=== PATIENT | female | born 1955 | race Caucasian/White ===

== ENCOUNTER 2018-01-24 13:09 | Observation (INO) ==
[2018-01-24] MEDS ORDERED: Ipratropium/Albuterol Neb 3 ML IH ONE (13:17)
--- NOTE | 2018-01-24 13:19 | Emergency Department Note ---
Disposition Clinical Impression: Acute exacerbation of chronic obstructive airways disease Disposition: Admitted As Inpatient Condition: Good Time of Disposition: 14:50 (Accepted by Dr Galvez for adsmission) SOB HPI - General Chief Complaint: ED Shortness of Breath/Dyspnea Stated Complaint: shortness of breath Time Seen by Provider: 01/24/18 13:16 Source: EMS Mode of arrival: EMS Limitations: no limitations Nursing Notes Reviewed: Yes Vital Signs Reviewed: Yes - History of Present Illness Patient is a pleasant 62-year-old female with past medical history significant for HTN, myocardial infarction, thyroid dysfunction, chronic tobacco abuse, Dyslipidemia and COPD who is presenting to [facility] Emergency Room with a chief complaint off severe shortness of breath. Patient stated that she cannot breathe. She called paramedics who gave her a breathing treatment. Patient smokes about 8 cigarettes per day and has a known long history of COPD. She uses 2 L of his cannula and also use a BiPAP. She recently noticed after exposure to fumes/smoking made her symptoms worse. She also reports recent cough productive of clear sputum. She denies chest heaviness. Patient denies any fever, chills or night sweats. Pt also denies any eye pain or visual disturbances. There is no sore throat, nasal drainages or facial congestion. There is no chest pain, palpitations or racing heart. There is no abdominal pain, nausea, vomiting or diarrhea. There is no urgency, frequency or dysuria. There is no muskulo-skeletal pain, arthralgia or back pain. Patient also denies any rash, edema or pruritus. There is no neurological manifestations, no headache, no vertigo or weakness. The patient also denies any anxiety, depression, hallucinations and has no homicidal or suicidal ideations. There is no polyuria, polydipsia or recent weight change. There is no easy bruising or bleeding. Review of other systems is otherwise negative except above. Pt Subjective Complaint: shortness of breath, chest pain Onset (ago): hour(s) Context: smoke/fume exposure Severity: severe Consistency/Duration: gradually worsening Improves with: bronchodilators - Related Data Previous Rx's Medication Instructions Recorded RX: Aspirin [Lo-Dose Aspirin EC] 81 mg PO DAILY #30 tablet. 04/12/17 RX: Atorvastatin Calcium [Lipitor] 80 mg PO HS #30 tablet 04/12/17 RX: Benztropine [Cogentin] 1 mg PO BID #60 tablet 04/12/17 RX: BuPROPion XL (24 HR) 150 mg PO QAM #30 tab.er.24h 04/12/17 [Wellbutrin Xl] RX: DULoxetine [Cymbalta] 30 mg PO BID #60 capsule. 04/12/17 RX: Ipratropium/Albuterol Neb 3 ml IH QID PRN #30 inhsol 04/12/17 [Duoneb] RX: Ipratropium/Albuterol Sulfate 1 puff IH QID PRN 30 Days 04/12/17 [Combivent Respimat Inhal [place]] mist.inhal RX: LORazepam [Ativan] 0.5 mg PO BID #60 tablet 04/12/17 RX: Metoprolol XL (24 HR) Succ 25 mg PO DAILY #30 tab.er.24h 04/12/17 [Toprol Xl] RX: Montelukast [Singulair] 10 mg PO DAILY #30 tablet 04/12/17 RX: Nabumetone [Relafen] 500 mg PO BID PRN #20 tablet 04/12/17 RX: OLANZapine [Zyprexa] 20 mg PO HS #30 tablet 04/12/17 RX: Pantoprazole Sodium [Protonix] 40 mg PO DAILY #30 tablet. 04/12/17 RX: Polyethylene Glycol 3350 17 gm PO DAILY PRN #20 powd.pack 04/12/17 [MiraLAX] Allergies Allergy/AdvReac Type Severity Reaction Status Date / Time haloperidol [From Haldol] Allergy Swelling Verified 01/24/18 13:11 of Lip/Tongue/Throat phenylalanine Allergy Swelling Verified 01/24/18 13:11 of Lip/Tongue/Throat prochlorperazine Allergy Swelling Verified 01/24/18 13:11 [From Compazine] of Lip/Tongue/Throat All systems ED: reviewed and negative except as stated. Review of Systems: As Per HPI Constitutional: Denies: fever, chills, weakness, weight change Eyes: Denies: eye pain, eye discharge, vision change ENT ED: Denies: ear pain, throat pain, dental pain, hearing loss, epistaxis, congestion, dysphagia Cardiovascular: Reports: chest pain. Denies: palpitations, dyspnea on exertion, edema, syncope Respiratory: Reports: cough, dyspnea, wheezes. Denies: hemoptysis, stridor Gastrointestinal: Denies: abdominal pain, nausea, vomiting, diarrhea, constipation, hematemesis, melena, hematochezia Genitourinary: Denies: dysuria, frequency, hematuria, discharge Musculoskeletal: Denies: back pain, neck pain, arthralgia, myalgia Integumentary: Denies: rash, abrasion, lesions Neurological: Denies: headache, weakness, numbness, paresthesias, confusion, abnormal gait, vertigo Psychiatric: Denies: anxiety, depression, suicidal thoughts, homicidal thoughts, auditory hallucinations, visual hallucinations Endocrine: Denies: fatigue Hematological/Lymphatic: Denies: easy bleeding, easy bruising Allergic/Immunologic: Denies: facial swelling, urticaria Past Medical History - Past Medical History Medical history: Reports: asthma, COPD, coronary artery disease, glaucoma, hyperlipidemia, hypertension, myocardial infarction, thyroid disease, other Surgical history: Reports: cholecystectomy, hysterectomy, other Psychiatric history: Reports: schizophrenia, previous psychiatric hospitalization - Social History Smoking Status: Current every day smoker Smokeless Tobacco Status: No Alcohol use: Reports: none Drug use: Reports: none Physical Exam - General Limitations: no limitations General appearance: alert, in no apparent distress - Head Head exam: atraumatic, normocephalic, normal inspection - Eye Eye exam: Present: normal appearance, PERRL, EOMI - Expanded Eye Exam Pupils: Left: reactive - ENT ENT exam: normal exam, normal oropharynx, mucous membranes moist - Expanded ENT Exam External ear exam: Present: normal external inspection Mouth exam: Present: normal external inspection Teeth exam: Present: normal inspection Throat exam: Present: normal inspection - Neck Neck exam: Present: normal inspection, full ROM, trachea midline - Chest Chest inspection: Present: normal inspection, symmetric chest wall rise - Respiratory Respiratory exam: Present: wheezes, prolonged expiratory phase, other (Diminished air entry bilaterally anteriorly and posteriorly) - Cardiovascular Cardiovascular exam: Present: regular rate, normal rhythm, normal heart sounds - Abdominal Exam Abdominal exam: Present: soft, Non-Tender. Absent: tenderness, distention, guarding, rebound, rigidity - Extremities Exam Extremities exam: Present: normal inspection, full ROM. Absent: tenderness, pedal edema - Expanded Upper Extremity Exam Shoulder exam: Present: normal inspection, full ROM Arm exam: Present: normal inspection, full ROM Elbow exam: Present: normal inspection, full ROM Forearm/Wrist exam: Present: normal inspection, full ROM Hand exam: Present: normal inspection, full ROM Vascular exam: Normal: capillary refill, radial pulse - Expanded Lower Extremity Exam Hip/Pelvis exam: Present: normal inspection, full ROM Upper leg exam: Present: normal inspection, full ROM Knee exam: Present: normal inspection, full ROM Lower leg exam: Present: normal inspection, full ROM Ankle exam: Present: normal inspection, full ROM Foot/toe exam: Present: normal inspection, full ROM Neurovascular/Tendon exam: Absent: motor deficit, sensory deficit, tendon deficit - Back Exam Back exam: Present: normal inspection, full ROM. Absent: tenderness - Neurological Exam Neurological exam: Present: alert, oriented X3 - Expanded Neurological Exam Patient oriented to: Present: person, place, time Coma Scale Eye Opening: Spontaneous Coma Scale Motor Response: Obeys Commands Coma Scale Verbal Response: Oriented Coma Scale Total: 15 - Psychiatric Psychiatric exam: Present: normal affect, normal mood - Skin Skin exam: Present: warm, dry, intact, normal color Course Vital Signs Temperature 98.5 F 01/24/18 13:14 Pulse Rate 93 01/24/18 13:14 Respiratory Rate 20 01/24/18 13:14 Blood Pressure 117/75 01/24/18 13:14 O2 Sat by Pulse Oximetry 92 01/24/18 13:14 Temperature 98.5 F 01/24/18 13:14 Pulse Rate 80 01/24/18 14:36 Respiratory Rate 18 01/24/18 14:36 Blood Pressure 120/82 01/24/18 14:36 O2 Sat by Pulse Oximetry 94 01/24/18 14:36 Oxygen Delivery Oxygen Delivery Nasal Cannula Shortness of Breath/Dyspnea - [facility] Narrative Medical decision making narrative: Patient is status as improved after recheck Admitted to the inpatient for DuoNeb and steroids IV Dr. Mcleod accepted her - Differential Diagnosis Likely: acute exacerbation of chronic obstructive airways disease - Medical Records Medical records reviewed: Yes I reviewed the patient's medical records. - Lab Data Lab results reviewed: Yes I reviewed the patient's lab results. Result diagrams: 01/24/18 13:34 01/24/18 13:34 Lab Results 01/24/18 01/24/18 01/24/18 Range/Units 13:34 13:34 13:34 WBC 8.8 (4.3-11.1) K/mcL RBC 4.45 (3.82-4.97) M/mcL Hgb 11.2 L (11.5-15.4) g/dL Hct 36.1 (35.3-44.9) % MCV 81.1 L (83.0-100.0) fL MCH 25.2 L (28.0-33.3) pg MCHC 31.0 L (31.6-35.5) g/dL RDW 18.3 H (11.5-14.5) % Plt Count 185 (140-400) K/mcL MPV 10.0 (9.4-12.4) fL Immature Gran % 0.3 (0-4) % Seg Neutrophils % 72.7 % Lymphocytes % 16.6 % Monocytes % 7.3 % Eosinophils % 2.3 % Basophils % 0.8 % Neutrophils # 6.4 (1.6-8.9) K/mcL Lymphocytes # 1.5 (0.6-4.6) K/mcL Monocytes # 0.6 (0.0-1.3) K/mcL Eosinophils # 0.2 (0.0-0.6) K/mcL Basophils # 0.1 (0.0-0.2) K/mcL PT 11.7 (9.4-12.1) Seconds INR 1.0 APTT 56.3 H (26.0-36.0) Seconds D-Dimer 313 (0-500) ng/mLFEU Sodium (136-145) mEq/L Potassium (3.5-5.1) mEq/L Chloride (98-107) mEq/L Carbon Dioxide (23-29) mEq/L BUN (8-23) mg/dL Creatinine (0.60-1.20) mg/dL Est GFR ( Amer) (> 60) Est GFR (Non-Af Amer) (> 60) BUN/Creatinine Ratio (6-26) Glucose (70-105) mg/dL Calculated Osmolality (280-300) Calcium (8.6-10.3) mg/dL Troponin I (< 0.04) ng/mL B-Natriuretic Peptide (Less than 100) pg/mL 01/24/18 01/24/18 Range/Units 13:34 13:34 WBC (4.3-11.1) K/mcL RBC (3.82-4.97) M/mcL Hgb (11.5-15.4) g/dL Hct (35.3-44.9) % MCV (83.0-100.0) fL MCH (28.0-33.3) pg MCHC (31.6-35.5) g/dL RDW (11.5-14.5) % Plt Count (140-400) K/mcL MPV (9.4-12.4) fL Immature Gran % (0-4) % Seg Neutrophils % % Lymphocytes % % Monocytes % % Eosinophils % % Basophils % % Neutrophils # (1.6-8.9) K/mcL Lymphocytes # (0.6-4.6) K/mcL Monocytes # (0.0-1.3) K/mcL Eosinophils # (0.0-0.6) K/mcL Basophils # (0.0-0.2) K/mcL PT (9.4-12.1) Seconds INR APTT (26.0-36.0) Seconds D-Dimer (0-500) ng/mLFEU Sodium 138 (136-145) mEq/L Potassium 4.3 (3.5-5.1) mEq/L Chloride 101 (98-107) mEq/L Carbon Dioxide 29 (23-29) mEq/L BUN 19 (8-23) mg/dL Creatinine 0.76 (0.60-1.20) mg/dL Est GFR ( Amer) > 60 (> 60) Est GFR (Non-Af Amer) > 60 (> 60) BUN/Creatinine Ratio 25 (6-26) Glucose 104 (70-105) mg/dL Calculated Osmolality 289 (280-300) Calcium 8.7 (8.6-10.3) mg/dL Troponin I < 0.03 (< 0.04) ng/mL B-Natriuretic Peptide 34 (Less than 100) pg/mL - Radiology Data Radiology results reviewed: Yes I reviewed the patient's radiology results. - EKG Data EKG attestation: Yes I reviewed and interpreted this EKG. EKG shows normal: Reports: sinus rhythm Rate: Reports: normal Rhythm: Reports: NSR Interpretation: Reports: no acute changes, normal EKG, unchanged when compared to prior tracing (date)
[2018-01-24 13:47] LABS: Basophils # 0.1 K/mcL (0.0-0.2); Basophils % 0.8 %; Eosinophils # 0.2 K/mcL (0.0-0.6); Eosinophils % 2.3 %; Hematocrit 36.1 % (35.3-44.9); Hemoglobin 11.2 g/dL (11.5-15.4); Immature Granulocytes % 0.3 % (0-4); Lymphocytes # 1.5 K/mcL (0.6-4.6); Lymphocytes % 16.6 %; Mean Corpuscular Hemoglobin 25.2 pg (28.0-33.3); Mean Corpuscular Volume 81.1 fL (83.0-100.0); Monocytes # 0.6 K/mcL (0.0-1.3); Monocytes % 7.3 %; Neutrophils # 6.4 K/mcL (1.6-8.9); Platelet Count 185 K/mcL (140-400); Red Blood Count 4.45 M/mcL (3.82-4.97); Red Cell Distribution Width 18.3 % (11.5-14.5); Segmented Neutrophils % 72.7 %
[2018-01-24 13:56] LABS: Prothrombin Time 11.7 Seconds (9.4-12.1)
[2018-01-24 13:58] LABS: Activated Partial Thrombo Time 56.3 Seconds (26.0-36.0)
[2018-01-24 14:01] LABS: BUN/Creatinine Ratio 25 (6-26); Blood Urea Nitrogen 19 mg/dL (8-23); Calcium 8.7 mg/dL (8.6-10.3); Carbon Dioxide 29 mEq/L (23-29); Chloride 101 mEq/L (98-107); Glucose 104 mg/dL (70-105); Osmolality,Calculated 289 (280-300); Potassium 4.3 mEq/L (3.5-5.1); Sodium 138 mEq/L (136-145); eGFR For Non-African Americans > 60 (> 60)
[2018-01-24 14:05] LABS: Troponin I < 0.03 ng/mL (< 0.04)
[2018-01-24] MEDS ORDERED: methylPREDNISolone 125 MG/2 ML VIAL IVP ONE (14:28)
[2018-01-24] MEDS ORDERED: Acetaminophen 325 MG TABLET PO PRN ×2 (15:01→16:39)
[2018-01-24] MEDS ORDERED: Naloxone 0.4 MG/ML INJ IVP PRN ×3 (15:01→16:39)
[2018-01-24] MEDS ORDERED: NON-FORMULARY MEDICATION 1 EACH EACH (Ipratropium/Albuterol Sulfate [Combivent Respimat In IH PRN (16:39)
[2018-01-24] MEDS ORDERED: Ipratropium/Albuterol Neb 3 ML IH PRN (16:39)
--- NOTE | 2018-01-24 17:39 | Electrocardiograph Report ---
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
[2018-01-24] MEDS: *HR* LORazepam 0.5 MG TABLET PO SCH (22:14)
[2018-01-24] MEDS: OLANZapine 10 MG TAB.RAPDIS PO SCH (22:15)
[2018-01-25 07:07] LABS: Hematocrit 35.1 % (35.3-44.9); Hemoglobin 10.8 g/dL (11.5-15.4); Mean Corpuscular HGB Conc 30.8 g/dL (31.6-35.5); Mean Corpuscular Hemoglobin 25.3 pg (28.0-33.3); Mean Corpuscular Volume 82.2 fL (83.0-100.0); Mean Platelet Volume 10.4 fL (9.4-12.4); Platelet Count 164 K/mcL (140-400); Red Blood Count 4.27 M/mcL (3.82-4.97); Red Cell Distribution Width 18.3 % (11.5-14.5)
[2018-01-25 07:26] LABS: BUN/Creatinine Ratio 26 (6-26); Blood Urea Nitrogen 20 mg/dL (8-23); Calcium 8.9 mg/dL (8.6-10.3); Carbon Dioxide 31 mEq/L (23-29); Chloride 103 mEq/L (98-107); Glucose 104 mg/dL (70-105); Osmolality,Calculated 295 (280-300); Potassium 4.2 mEq/L (3.5-5.1); Sodium 141 mEq/L (136-145); eGFR For Non-African Americans > 60 (> 60)
--- NOTE | 2018-01-25 09:10 | Internal Med History&Physical ---
Date of Encounter: 01/25/18 Time of Encounter: 08:45 Assessment and Plan (1) COPD (chronic obstructive pulmonary disease) Current visit: No Status: Chronic She was started on Singulair with prn DuoNeb through the emergency room. Chest CT will be done to further evaluate. Qualifiers: COPD type: unspecified COPD Qualified Code(s): J44.9 - Chronic obstructive pulmonary disease, unspecified (2) Weight loss Current visit: Yes Status: Acute She reports a weight loss of 30 pounds in the past year. Available records show approximately 20 pound decrease since January 2016 hospitalization. Chest and abdomen CT will be ordered. TSH was normal at 5.563 on 10/31/2017. (3) Hypertension Current visit: No Status: Chronic Hold Toprol-XL due to hypotension. Qualifiers: Hypertension type: essential hypertension Qualified Code(s): I10 - Essential (primary) hypertension (4) Microcytic anemia Current visit: No Status: Chronic Order anemia testing. Internal Medicine - H&P: HPI Chief complaint: Dyspnea Admitted From: Emergency Dept Plans for Post Hospital Care: Home History of present illness: Ms. Parker is a 62 year old female who came to emergency room stating she had onset of dyspnea earlier in the day. There was no significant cough or chest pain. She was evaluated in emergency room and felt to have exacerbation of COPD and was admitted to [facility] floor for ongoing care needs. Respiratory history is significant for having smoked since age 15 up to one and a half packs per day. She claims a diagnosis of COPD and uses oxygen 24/7. She reports she had bilateral lung masses on a past chest x-ray at [facility] but I cannot verify this on review of available film reports. She claims a diagnosis of EKLLEN. Past Med Surg Social Fam HX - Past Medical History Medical history: asthma, COPD, coronary artery disease, glaucoma, hyperlipidemia, hypertension, myocardial infarction, thyroid disease, other Additional medical history: Current pain level reported is "down in my pelvic area, but isn't to bad" Psychiatric history: schizophrenia, previous psychiatric hospitalization - Past Surgical History Surgical History: cholecystectomy, hysterectomy, other - Social History Smoking Status: Current every day smoker Smokeless Tobacco Status: No Alcohol use: none Drug use: none - Family History Mother Hx Family Cardiac Disorders: Yes Hx Family Endocrine Disorder: Yes (DM) Internal Medicine - H&P: Meds Aspirin [Lo-Dose Aspirin EC] 81 mg PO DAILY #30 tablet. 04/12/17 [Rx] Atorvastatin Calcium [Lipitor] 80 mg PO HS #30 tablet 04/12/17 [Rx] Benztropine [Cogentin] 1 mg PO BID #60 tablet 04/12/17 [Rx] BuPROPion XL (24 HR) [Wellbutrin Xl] 150 mg PO QAM #30 tab.er.24h 04/12/17 [Rx] DULoxetine [Cymbalta] 30 mg PO BID #60 capsule. 04/12/17 [Rx] Ipratropium/Albuterol Neb [Duoneb] 3 ml IH QID PRN #30 inhsol 04/12/17 [Rx] Ipratropium/Albuterol Sulfate [Combivent Respimat Inhal [place]] 1 puff IH QID PRN 30 Days mist.inhal 04/12/17 [Rx] LORazepam [Ativan] 0.5 mg PO BID #60 tablet 04/12/17 [Rx] Metoprolol XL (24 HR) Succ [Toprol Xl] 25 mg PO DAILY #30 tab.er.24h 04/12/17 [Rx] Montelukast [Singulair] 10 mg PO DAILY #30 tablet 04/12/17 [Rx] Nabumetone [Relafen] 500 mg PO BID PRN #20 tablet 04/12/17 [Rx] OLANZapine [Zyprexa] 20 mg PO HS #30 tablet 04/12/17 [Rx] Pantoprazole Sodium [Protonix] 40 mg PO DAILY #30 tablet. 04/12/17 [Rx] Polyethylene Glycol 3350 [MiraLAX] 17 gm PO DAILY PRN #20 powd.pack 04/12/17 [ Rx] Allergy/AdvReac Type Severity Reaction Status Date / Time haloperidol [From Haldol] Allergy Swelling Verified 01/24/18 13:11 of Lip/Tongue/Throat phenylalanine Allergy Swelling Verified 01/24/18 13:11 of Lip/Tongue/Throat prochlorperazine Allergy Swelling Verified 01/24/18 13:11 [From Compazine] of Lip/Tongue/Throat All Systems PM: A 10-system review of systems was performed and is negative for pertinent findings except as documented above in the HPI. Review of systems: Gen.: Her weight has decreased from 72.711 kg on 01/30/2016 to 64.455 kg at present time. Cardiovascular: She has history of hypertension. 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 A heart catheter 2010 [facility] resulted in PTCA but no stent placement. She has not had follow-up heart catheter. She does not get chest pain routinely on walking. An echocardiogram 01/26/2016 showed LVEF of 65-70%. The interventricular septum and posterior wall thickness measurements were 1.10 cm each. There was reported biatrial enlargement without measurements recorded. E/A ratio was 0.9. She denies DVT or pulmonary embolus. Respiratory: As per history of present illness GI: She has had cholecystectomy. She denies disorders of her liver or exocrine pancreas. : She reports renal cysts in the past. She denies other kidney or bladder disorders. Neurologic: She denies large distribution strokes or seizures. Endocrine: She reports she has "thyroid disease" but does not know details. TSH was normal at 5.563 on 10/31/2017. She denies diabetes or hyperlipidemia. Hematology/oncology: She has history of anemia. She denies known internal malignancies or other blood disorders. Psychiatric: She has bipolar disorder, anxiety, and schizophrenia. 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 [place] skeletal: She has DJD but denies gout or other bone joint or muscle disorders. - Constitutional Vitals: Temp Pulse Resp BP Pulse Ox 98.2 F 85 14 99/69 90 01/25/18 06:27 01/25/18 06:27 01/25/18 06:27 01/25/18 06:27 01/25/18 06:27 Exam: Gen.: She is a well-developed well-nourished female lying in bed who appears in minimal distress at present time. HEENT: Head is atraumatic and normocephalic. Eyes: EOMI. There is no scleral icterus. Mouth: Mucosa is moist. Neck: Supple and nontender. There is no thyromegaly or adenopathy noted. Heart: Regular without murmurs gallops or ectopics. Lungs: No wheezes or crackles are heard. She has diminished breath sounds diffusely. Abdomen: She has minimal tenderness to palpation. No masses or guarding are noted. Extremities: There is no cyanosis edema or clubbing noted. Dorsalis pedis and posttibial pulses are trace to 1+ palpable bilaterally. Neurologic: Mental status: She seems to be a fair to good historian. She does not remember some details of her past history. Cranial nerves: Smile is symmetric. Forehead wrinkles bilaterally. Tongue protrudes midline. EOMI. Motor: There is no pronator drift. Cerebellar: Finger to nose is intact bilaterally. Skin: Warm and dry Internal Med - H&P Results - Labs CBC & Chem 7: 01/25/18 06:56 01/25/18 06:56 Labs: Short CBC 01/24/18 01/25/18 Range/Units 13:34 06:56 WBC 8.8 10.4 (4.3-11.1) K/mcL Hgb 11.2 L 10.8 L (11.5-15.4) g/dL Hct 36.1 35.1 L (35.3-44.9) % Plt Count 185 164 (140-400) K/mcL Neutrophils # 6.4 (1.6-8.9) K/mcL BMP 01/24/18 01/25/18 13:34 06:56 Sodium 138 141 Potassium 4.3 4.2 Chloride 101 103 Carbon Dioxide 29 31 H BUN 19 20 Creatinine 0.76 0.78 Glucose 104 104 Calcium 8.7 8.9 Cardiac Enzymes 01/24/18 01/24/18 01/25/18 Range/Units 13:34 19:30 01:38 Troponin I < 0.03 < 0.03 < 0.03 (< 0.04) ng/mL 01/25/18 Range/Units 06:56 Troponin I < 0.03 (< 0.04) ng/mL - Impressions ITS Impressions Chest X-Ray 01/24/18 13:18 IMPRESSION: No evidence for acute cardiopulmonary process. Moderate to large hiatal hernia. D/ / Joshua Carr MD / Joshua Carr MD Interpreting Provider: Joshua Carr MD
[2018-01-25] MEDS: BuPROPion XL (24 HR) 150 MG TABLET PO SCH (09:19)
[2018-01-25] MEDS: *HR* LORazepam 0.5 MG TABLET PO SCH ×2 (09:19→20:07)
[2018-01-25] MEDS: Aspirin Enteric Coated 81 MG Tablet PO SCH (09:19)
[2018-01-25] MEDS: OLANZapine 10 MG TAB.RAPDIS PO SCH (20:07)
[2018-01-25 21:11] LABS: % Iron Saturation 15 % (15-50); Iron 75 mcg/dL (50-170); Transferrin 367 mg/dL (203-362)
[2018-01-25 21:29] LABS: Ferritin 9 ng/mL (10-120)
[2018-01-25 21:34] LABS: Folate 13.1 ng/mL (3.0-16.0)
[2018-01-26 06:22] LABS: Basophils # 0.1 K/mcL (0.0-0.2); Basophils % 0.8 %; Eosinophils # 0.1 K/mcL (0.0-0.6); Eosinophils % 1.1 %; Hemoglobin 10.9 g/dL (11.5-15.4); Immature Granulocytes % 0.3 % (0-4); Lymphocytes # 1.1 K/mcL (0.6-4.6); Mean Corpuscular HGB Conc 30.3 g/dL (31.6-35.5); Mean Corpuscular Hemoglobin 25.5 pg (28.0-33.3); Mean Corpuscular Volume 84.1 fL (83.0-100.0); Mean Platelet Volume 10.3 fL (9.4-12.4); Monocytes # 0.6 K/mcL (0.0-1.3); Monocytes % 5.9 %; Neutrophils # 7.4 K/mcL (1.6-8.9); Platelet Count 151 K/mcL (140-400); Red Blood Count 4.28 M/mcL (3.82-4.97); Red Cell Distribution Width 18.9 % (11.5-14.5); Segmented Neutrophils % 79.9 %
[2018-01-26 06:41] VITALS: BP 97/70
[2018-01-26 06:43] LABS: Alanine Aminotransferase 8 Units/L (7-52); Albumin 3.5 g/dL (3.5-5.7); Albumin/Globulin Ratio 1.1 (1.1-2.2); Alkaline Phosphatase 85 Units/L (34-104); Aspartate Amino Transferase 9 Units/L (13-39); BUN/Creatinine Ratio 23 (6-26); Bilirubin,Total 0.5 mg/dL (0.3-1.0); Blood Urea Nitrogen 16 mg/dL (8-23); Calcium 8.8 mg/dL (8.6-10.3); Carbon Dioxide 30 mEq/L (23-29); Chloride 104 mEq/L (98-107); Globulin 3.1 g/dL (2.4-3.5); Glucose 93 mg/dL (70-105); Osmolality,Calculated 289 (280-300); Potassium 4.1 mEq/L (3.5-5.1); Sodium 139 mEq/L (136-145); Total Protein 6.6 g/dL (6.4-8.9); eGFR For Non-African Americans > 60 (> 60)
[2018-01-26] MEDS: BuPROPion XL (24 HR) 150 MG TABLET PO SCH (08:41)
[2018-01-26] MEDS: Aspirin Enteric Coated 81 MG Tablet PO SCH (08:41)
[2018-01-26] MEDS: *HR* LORazepam 0.5 MG TABLET PO SCH (08:41)
--- NOTE | 2018-01-26 09:50 | Discharge Summary ---
Date of Encounter: 01/26/18 Time of Encounter: 09:35 - Discharge Diagnosis (1) Community acquired pneumonia Priority: Primary Status: Acute Qualifiers: Laterality: left Lung location: unspecified part of lung Qualified Code(s): J18.9 - Pneumonia, unspecified organism (2) COPD (chronic obstructive pulmonary disease) Priority: Secondary Status: Chronic Qualifiers: COPD type: unspecified COPD Qualified Code(s): J44.9 - Chronic obstructive pulmonary disease, unspecified (3) Weight loss Priority: Secondary Status: Chronic (4) Hypertension Priority: Secondary Status: Chronic Qualifiers: Hypertension type: essential hypertension Qualified Code(s): I10 - Essential (primary) hypertension (5) Microcytic anemia Priority: Secondary Status: Chronic Hospital course: Ms. Parker is a 62 year old female who came to emergency room stating she had onset of dyspnea earlier in the day. There was no significant cough or chest pain. She was evaluated in emergency room and felt to have exacerbation of COPD and was admitted to [facility] floor for ongoing care needs. Initial orders were written by the emergency room physician. I saw her on January 25 and performed a history and physical. Chest, abdomen, and pelvis CT were done to further evaluate. There was left lower lobe and lingular focal consolidative opacities suspicious for pneumonia. Some appeared nodular and recommendation was made for short-term follow-up to ensure resolution. Her PCP can order repeat CT in a few weeks. She will be started on a bike and probiotic for 5 days upon discharge. Anemia testing showed iron 75, transferrin saturation 15%, transferrin 367, ferritin 9, B12 332, and folate 13.1. She will be given ferrous sulfate with vitamin C at discharge. Toprol-XL will be held because of hypotension. On January 26 she felt stable for discharge home. I encouraged her to become a nonsmoker. She will follow with her PCP Dr. Hager within 1 week. She will continue home oxygen 08/10 as previously ordered. - Time Spent with Patient Total time spent providing and/or coordinating discharge services: - Discharge Medications Prescriptions: Cefuroxime PO [Ceftin] 500 mg PO Q12HR #10 tablet Ascorbic Acid [Vitamin C with Eli Hips] 500 mg PO DAILY #30 tablet.er Azithromycin [Zithromax] 250 mg PO DAILY #5 tablet Ferrous Sulfate 325 mg PO DAILY #30 tablet Lactobacillus [Culturelle] 1 each PO BID #10 cap.sprink Home Medications: Aspirin [Lo-Dose Aspirin EC] 81 mg PO DAILY #30 tablet. 04/12/17 [Rx] Atorvastatin Calcium [Lipitor] 80 mg PO HS #30 tablet 04/12/17 [Rx] Benztropine [Cogentin] 1 mg PO BID #60 tablet 04/12/17 [Rx] BuPROPion XL (24 HR) [Wellbutrin Xl] 150 mg PO QAM #30 tab.er.24h 04/12/17 [Rx] DULoxetine [Cymbalta] 30 mg PO BID #60 capsule. 04/12/17 [Rx] Ipratropium/Albuterol Neb [Duoneb] 3 ml IH QID PRN #30 inhsol 04/12/17 [Rx] Ipratropium/Albuterol Sulfate [Combivent Respimat Inhal [place]] 1 puff IH QID PRN 30 Days mist.inhal 04/12/17 [Rx] LORazepam [Ativan] 0.5 mg PO BID #60 tablet 04/12/17 [Rx] Montelukast [Singulair] 10 mg PO DAILY #30 tablet 04/12/17 [Rx] Nabumetone [Relafen] 500 mg PO BID PRN #20 tablet 04/12/17 [Rx] OLANZapine [Zyprexa] 20 mg PO HS #30 tablet 04/12/17 [Rx] Pantoprazole Sodium [Protonix] 40 mg PO DAILY #30 tablet. 04/12/17 [Rx] Polyethylene Glycol 3350 [MiraLAX] 17 gm PO DAILY PRN #20 powd.pack 04/12/17 [Rx] Ascorbic Acid [Vitamin C with Eli Hips] 500 mg PO DAILY #30 tablet.er 01/26/18 [Rx] Azithromycin [Zithromax] 250 mg PO DAILY #5 tablet 01/26/18 [Rx] Cefuroxime PO [Ceftin] 500 mg PO Q12HR #10 tablet 01/26/18 [Rx] Ferrous Sulfate 325 mg PO DAILY #30 tablet 01/26/18 [Rx] Lactobacillus [Culturelle] 1 each PO BID #10 cap.sprink 01/26/18 [Rx] Allergies/Adverse Reactions: Allergy/AdvReac Type Severity Reaction Status Date / Time haloperidol [From Haldol] Allergy Swelling Verified 01/24/18 13:11 of Lip/Tongue/Throat phenylalanine Allergy Swelling Verified 01/24/18 13:11 of Lip/Tongue/Throat prochlorperazine Allergy Swelling Verified 01/24/18 13:11 [From Compazine] of Lip/Tongue/Throat Date of admission: 01/24/18 15:11 Primary care physician: Steve Hager MD - Constitutional Vitals: Temp Pulse Resp BP Pulse Ox 98.1 F 99 14 97/70 100 01/26/18 06:40 01/26/18 06:40 01/26/18 06:40 01/26/18 06:40 01/26/18 06:40 - Patient Status Disposition: Home, Self-Care Condition: Good - Discharge Instructions Follow Up With: Steve Hager MD [Primary Care Provider] - - Diet and Activity Activity: resume usual activities as tolerated Diet: advance to your usual diet
== END 2018-01-26 10:48 | disposition home or self-care (01) ==
LOC: EMEROOPIK 13:09 → INPPIK 13:09
PROVIDERS: ADMIT Internal Medicine; ATTEND Internal Medicine